=== PATIENT | male | born 1955 | race Caucasian/White ===

== ENCOUNTER 2021-09-27 08:48 | Day surgery (SDC) | payer MEDICARE, OTHER ==
[~2021-09-27] VITALS: Ht 172.7 cm; Wt 81.4 kg
[2021-09-27] MEDS ORDERED: PROTONIX 40MG T40 MG PO (10:45)
[2021-09-27] MEDS ORDERED: COREG12.5 MG PO (10:48)
[2021-09-27] MEDS ORDERED: CARDIZEM CD 12120 MG PO (10:49)
[2021-09-27] MEDS ORDERED: ELIQUIS 5MG PO (10:50)
[2021-09-27] MEDS ORDERED: VYTORIN 10 MG-11 TAB PO (10:51)
[2021-09-27] MEDS ORDERED: COZAAR 25MG25 MG/TAB PO (10:51)
[2021-09-27] MEDS ORDERED: ASPIRIN E.C. 8181 MG PO (10:52)
[2021-09-27] MEDS ORDERED: LUTEIN6 MG PO (10:53)
[2021-09-27 10:54] VITALS: BP 157/88; PULSE 50; TEMP 97.6
[2021-09-27] MEDS ORDERED: NORCO 325 MG-51 TAB PO (12:10)
[2021-09-27] MEDS ORDERED: CEPHALEXIN500 M1 PO (12:10)
[2021-09-27 13:10] VITALS: BP 167/102; PULSE 45; TEMP 97.1
--- NOTE | 2021-09-27 13:10 | NUR ---
Pt returned via cart to [facility] from PACU. present upon return. Pt drowsy, easily arousable to name. VSS-BP has been on the high side and will continue to be monitored. 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 Pt on 2L via NC after receiving IV pain medication in PACU. Pt has drain sponge at head of penis for bloody drainage pt initially has when in PACU. Does not appear to be actively bleeding. Indwelling urinary catheter patent to DD bag with yellow, slightly pink tinged urine output noted. Side rails up and warm blankets on. Call light in reach. Pt resting with eyes closed.
[2021-09-27 13:15] VITALS: BP 170/89; PULSE 49
[2021-09-27 13:30] VITALS: BP 151/74; PULSE 49
[2021-09-27 13:45] VITALS: BP 159/77; PULSE 43
--- NOTE | 2021-09-27 14:50 | NUR ---
Pts VS remain stable-see flowsheet. Tolerated ice chips. Pts guadalupe draining without difficulty. IV removed, pressure dressing applied. Lengthy teaching completed with pt and pts , Sunitha on guadalupe catheter home care and dc instructions. Appropriate supplies sent with pt. Pt and Sunitha both verbalized understanding. Pt dressed. Taken via wheelchair to private vehicle for dc home with Sunitha driving.
== END 2021-09-27 14:50 | disposition home or self-care (01) ==
LOC: SDCO 08:48
DX: Q64.4 Malformation of urachus (principal); R31.0 Gross hematuria; N32.89 Other specified disorders of bladder; Z87.891 Personal history of nicotine dependence; Z95.5 Presence of coronary angioplasty implant and graft; Z79.82 Long term (current) use of aspirin; Z80.52 Family history of malignant neoplasm of bladder
CPT/HCPCS: J0360; J0690; J1170; J2405; J2704; J3010; J7120